=== PATIENT | male | born 1975 | race Caucasian/White ===

== ENCOUNTER 2024-03-11 00:59 | Inpatient (IN) ==
[2024-03-11] MEDS ORDERED: Morphine 2 MG/ML SYRINGE IV PRN (04:09)
[2024-03-11] MEDS: cefTRIAXone 2 gm/50 mL D5W 2 GM/50 ML BAG IV SCH (06:29)
[2024-03-11] MEDS: Lactated Ringers 1000 ml BAG 1,000 ML IV SCH (06:29)
[2024-03-11] MEDS: metroNIDAZOLE IV 500 MG/100ML 500 MG/100 ML BAG IVPB SCH (06:45)
[2024-03-11] MEDS: Mometasone/Formoter 200/5 MDI INH SCH (09:11)
[2024-03-11 10:12] LABS: ABS Basophils 0.1 10^3/uL (0.0-0.1); ABS Eosinophils 0.4 10^3/uL (0.0-0.5); ABS Lymphocytes 2.2 10^3/uL (1.0-4.8); ABS Monocytes 0.5 10^3/uL (0.0-1.1); ABS Neutrophils 3.1 10^3/uL (1.5-7.6); Eosinophil % 6.3 %; Hematocrit 37.7 % (38-53); Hemoglobin 13.4 g/dL (13.2-16.3); Mean Corpuscular Hgb Conc 35.6 g/dL (31-36); Mean Corpuscular Volume 89.8 fL (80-97); Mean Platelet Volume 8.5 fL (7.5-11.2); Platelet Count 159 10^3/uL (150-450); Red Cell Distribution Width 12.8 % (12-17); White Blood Count 6.2 10^3/uL (3.6-10.2)
[2024-03-11 10:58] LABS: CRP High Sensitivity 63.81 mg/L (<2.00); Calcium 8.5 mg/dL (8.6-10.3); Creatinine, Serum 1.17 mg/dL (0.67-1.17); Potassium 3.5 mmol/L (3.5-5.0); eGFR CKD-EPI 77.4 (>60)
[2024-03-12 08:00] LABS: Hematocrit 36.2 % (38-53); Mean Corpuscular Hgb Conc 36.1 g/dL (31-36); Mean Corpuscular Volume 88.7 fL (80-97); Mean Platelet Volume 8.7 fL (7.5-11.2); Platelet Count 164 10^3/uL (150-450); Red Blood Count 4.08 10^6/uL (4.06-5.63); Red Cell Distribution Width 12.7 % (12-17); White Blood Count 6.5 10^3/uL (3.6-10.2)
[2024-03-12 08:22] LABS: Calcium 8.3 mg/dL (8.6-10.3); Creatinine, Serum 1.03 mg/dL (0.67-1.17); Magnesium 1.8 mg/dL (1.9-2.7); Potassium 4.1 mmol/L (3.5-5.0); eGFR CKD-EPI 90.2 (>60)
[2024-03-12 09:38] VITALS: BP 133/81
[2024-03-12] MEDS: Magnesium Sulfate 2 gm BAG 2 GM/50 ML BAG IVPB ONE (09:50)
== END 2024-03-12 13:10 | disposition home or self-care (01) | DRG 244 ==
LOC: ED 00:59 → EDHOLD 02:31 → SUATTDRO 02:31 → MED 06:21
PROVIDERS: ADMIT Internal Medicine; ATTEND Student in an Organized Health Care Education/Training Program